=== PATIENT | male | born 1975 | race Caucasian/White ===

== ENCOUNTER 2017-05-24 15:06 | Emergency (ER) | payer BC ==
[~2017-05-24] VITALS: Ht 185.4 cm; Wt 87.0 kg
[2017-05-24 15:09] VITALS: BP 131/90
[2017-05-24] MEDS ORDERED: BACITRACIN ZINC OINT UDPKT TOP ONE (16:45)
== END 2017-05-24 18:48 | disposition home or self-care (01) ==
LOC: ER 15:19
DX: S62.350A Nondisplaced fracture of shaft of second metacarpal bone, right hand, initial encounter for closed fracture (principal); S80.212A Abrasion, left knee, initial encounter; Z88.0 Allergy status to penicillin; V13.4XXA Pedal cycle driver injured in collision with car, pick-up truck or van in traffic accident, initial encounter; Y93.89 Activity, other specified; Y92.488 Other paved roadways as the place of occurrence of the external cause
CPT/HCPCS: 29125; 73130; 73590; 99284